=== PATIENT | female | born 1955 | race Two or more races ===

== ENCOUNTER → 2017-04-11 | Outpatient (CLI) | payer OTHER ==
--- NOTE | 2017-04-11 12:46 | RAD ---
Indication: Abnormal outside mammogram from 03/25/2017. States performed for further evaluation. Outside mammogram described a questionable well-defined density in the anterior left breast. There is a well-defined cyst in the retroareolar left breast measuring 14 mm x 11 mm x 14 mm. This demonstrates posterior acoustic enhancement. No internal vascularity is seen. No other abnormality is detected. Impression: BI-RADS Category 2, likely benign. 14 mm cyst retroareolar left breast, likely accounting for the mammographic density. The patient may return to routine annual screening mammography.
== END | disposition home or self-care (01) ==
LOC: US 09:05
PROVIDERS: ATTEND Internal Medicine
DX: N60.02 Solitary cyst of left breast (principal)
CPT/HCPCS: 76641

== ENCOUNTER → 2021-10-07 | Outpatient (CLI) | payer MEDICARE, OTHER ==
--- NOTE | 2021-10-07 15:59 | RAD ---
US PELVIS W/TV History: RT PELVIC PAIN, HX OF RT OVARIAN CYST Comparison: None. Technique: Sonographic examination of the pelvis was performed with transabdominal and transvaginal t echnique. Findings: Uterus- Uterine parenchyma: Heterogeneous echotexture. Intramural fibroids identified measuring 1.9 cm diamet er at the posterior body and 2.2 cm diameter at the posterior lower uterine segment. Uterine measurements: 7.2 x 3.9 x 4.1 cm Cervix: Unremarkable. Endometrial Stripe: Obscured by heterogeneous uterus and fibroids. No thickened endometrium or endome trial masses appreciated. Adnexa- The ovaries are nonvisualized with transabdominal and transvaginal technique due to overlying bowel g as. Other: No abnormal adnexal masses. No abnormal free fluid in the pelvis. Impression: 1. Heterogeneous fibroid uterus with poor visualization of the endometrial stripe. 2. Nonvisualization of the ovaries due to overlying bowel gas. Electronically signed by: Sawyer Doyle MD (10/07/2021 1:18 PM) [id number]
== END ==
LOC: US 08:35
PROVIDERS: ATTEND Internal Medicine
DX: D25.1 Intramural leiomyoma of uterus (principal); N83.201 Unspecified ovarian cyst, right side
CPT/HCPCS: 76830; 76856